=== PATIENT | female | born 1950 | race Caucasian/White ===

== ENCOUNTER 2019-10-19 09:52 | Day surgery (SDC) | payer MEDICAID, MEDICARE ==
[~2019-10-19] VITALS: Ht 165.1 cm; Wt 75.5 kg
[2019-10-19] MEDS ORDERED: ATEN50TA41 PO (10:25)
[2019-10-19] MEDS ORDERED: ATOR40TA PO (10:25)
[2019-10-19] MEDS ORDERED: OLME20TA17 PO (10:25)
[2019-10-19] MEDS ORDERED: POTA20TA6 PO (10:25)
[2019-10-19] MEDS ORDERED: FURO20TA3 PO (10:25)
[2019-10-19] MEDS ORDERED: ASPI-496 PO (10:26)
[2019-10-19 10:27] VITALS: BP 173/102
[2019-10-19] MEDS ORDERED: MIDAZOLAM 1 MG/ML, 5ML ONE (12:00)
[2019-10-19] MEDS ORDERED: FENTANYL PF 100 MCG/2ML ONE (12:00)
[2019-10-19] MEDS ORDERED: HEPARIN 1,000 UNITS/ML, 10ML ONE (12:01)
[2019-10-19] MEDS ORDERED: TICAGRELOR 90 MG TABLET ONE (12:01)
[2019-10-19] MEDS ORDERED: VERAPAMIL 2.5 MG/ML, 2ML ONE (12:01)
[2019-10-19] MEDS ORDERED: BIVALIRUDIN 250 MG ONE (12:01)
[2019-10-19] MEDS ORDERED: LIDOCAINE-MPF 1%, 5ML ONE (12:01)
[2019-10-19] MEDS ORDERED: NITROGLYCERIN 5 MG/ML, 10ML ONE (12:11)
== END 2019-10-19 15:36 | disposition home or self-care (01) ==
LOC: CACL 09:52
PROVIDERS: ATTEND Internal Medicine Cardiovascular Disease
DX: R94.39 Abnormal result of other cardiovascular function study (principal); I25.5 Ischemic cardiomyopathy; I25.10 Atherosclerotic heart disease of native coronary artery without angina pectoris; I77.1 Stricture of artery; I11.0 Hypertensive heart disease with heart failure; I50.20 Unspecified systolic (congestive) heart failure; E03.9 Hypothyroidism, unspecified; J44.9 Chronic obstructive pulmonary disease, unspecified; E78.5 Hyperlipidemia, unspecified; Z79.899 Other long term (current) drug therapy; Z87.891 Personal history of nicotine dependence
CPT/HCPCS: 93458; 99156; 99157; C1769; C1887; C1894; J1644; J2250; J3010; Q9967; J0583